=== PATIENT | male | born 1995 | race Caucasian/White ===

== ENCOUNTER 2024-04-07 03:04 | Inpatient (IN) | payer MEDICAID, OTHER ==
[~2024-04-07] VITALS: Ht 188 cm; Wt 87.3 kg
[2024-04-07 01:00] VITALS: BP 137/83; PULSE 96; RESP 18; TEMP 97.9; O2SAT 98
[~2024-04-07 03:04] MED LIST: BUPR-49 PO; GABA-1201 PO; NALT50TA6 PO; OLAN10TA74 PO; TRAZ-257 PO
[2024-04-07 03:28] LABS: COVID AG,FIA SOURCE NASAL SWAB
[2024-04-07 03:30] LABS: BASOPHILS % (AUTO) 0.7 % (0.0-2.0); EOSINOPHILS % (AUTO) 1.2 % (1.0-6.0); HEMATOCRIT 36.9 % (41-53); HEMOGLOBIN 12.3 g/dL (13.5-17.5); LYMPHOCYTES # (AUTO) 1.9 K/uL (1.0-4.8); LYMPHOCYTES % (AUTO) 18.2 % (22.0-44.0); MEAN CORPUSCULAR HEMOGLOBIN 28.7 pg (26.0-34.0); MEAN CORPUSCULAR HGB CONC 33.3 G/dL (31.0-37.0); MEAN CORPUSCULAR VOLUME 87 fL (80-100); MONOCYTES # (AUTO) 0.8 K/uL (0.1-1.0); MONOCYTES % (AUTO) 7.7 % (2.0-9.0); NEUTROPHILS # (AUTO) 7.6 K/uL (1.8-7.7); NEUTROPHILS % (AUTO) 72.2 % (40.0-70.0); PLATELET COUNT (AUTO) 333 K/uL (150-450); RED BLOOD CELL COUNT(AUTO) 4.27 MIL/uL (4.50-5.90); RED CELL DISTRIBUTION WIDTH 15.3 % (11.5-14.5); WHITE BLOOD COUNT (AUTO) 10.5 K/uL (4.5-11.0)
[2024-04-07 03:39] LABS: ANION GAP 5 mmol/L (8-16); CALCIUM, TOTAL 9.5 mg/dL (8.8-10.5); CARBON DIOXIDE 30 mmol/L (22-29); CHLORIDE 102 mmol/L (98-107); CREATININE 0.73 mg/dL (0.60-1.30); GLOMERULAR FILTR. RATE CALC > 60 mL/min (>60); GLUCOSE,RANDOM 97 mg/dL (70-110); POTASSIUM 3.7 mmol/L (3.5-5.1); SODIUM SERUM 137 mmol/L (136-145); UREA NITROGEN, BLOOD 12 mg/dL (7-18)
[2024-04-07 03:48] LABS: ALCOHOL, BLOOD (SERUM) < 3 mg/dL (0-10)
[2024-04-07 03:51] LABS: SARS-COV2 (COVID) ANTIGEN,FIA Negative (Negative)
[2024-04-07] MEDS ORDERED: HALOPERIDOL 5 MG TABLET PO PRN (04:15)
[2024-04-07] MEDS ORDERED: OLANZapine 5 MG RAPDIS TABLET PO PRN (04:30)
[2024-04-07 06:02] LABS: APPEARANCE,URINE CLEAR (CLEAR); BILIRUBIN,URINE NEGATIVE (NEGATIVE); COLOR,URINE LIGHT YELLOW (YELLOW); GLUCOSE, URINE (UA) NEGATIVE (NEGATIVE); KETONES,URINE NEGATIVE (NEGATIVE); LEUKOCYTE ESTERASE ,URINE NEGATIVE (NEGATIVE); NITRATE,URINE NEGATIVE (NEGATIVE); OCCULT BLOOD,URINE NEGATIVE (NEGATIVE); PROTEIN,URINE NEGATIVE (NEGATIVE); SPECIFIC GRAVITIY, URINE 1.009 (1.003-1.030); UROBILINOGEN,URINE <=1.0 mg/dL (<=1.0)
[2024-04-07 06:06] LABS: ALCOHOL, URINE DRUG SCREEN NEGATIVE (NEGATIVE); AMPHET/METH SCREEN,URINE POSITIVE (NEGATIVE); BARBITURATE SCREEN, URINE NEGATIVE (NEGATIVE); BENZODIAZEPINES SCREEN,URINE NEGATIVE (NEGATIVE); CANNABINOID SCREEN,URINE NEGATIVE (NEGATIVE); COCAINE SCREEN,URINE NEGATIVE (NEGATIVE); METHADONE SCREEN, URINE NEGATIVE (NEGATIVE); OPIATE SCREEN,URINE NEGATIVE (NEGATIVE); PHENCYCLIDINE SCREEN,URINE NEGATIVE (NEGATIVE)
[2024-04-07] MEDS: LORazepam 2 MG TABLET PO PRN (09:39)
[2024-04-07 14:10] VITALS: BP 138/98; PULSE 92; RESP 20; TEMP 96.8
[2024-04-07] MEDS ORDERED: PNEUMOCOCCAL VACCINE POLYVALENT 0.5 ML SYRINGE [PPSV23] IM. ONE (15:45)
[2024-04-07] MEDS ORDERED: MAG HYDROX/ALUMINUM HYD/SIMETH ES 30 ML SUSPENSION UDCUP PO PRN (20:30)
[2024-04-07] MEDS ORDERED: HydrOXYzine PAMOATE 50 MG CAPSULE PO PRN (20:30)
[2024-04-07] MEDS ORDERED: GuaiFENesin/D-METHORPHAN [SUGAR-FREE] 200-20MG/10 ML SYRUP UDCUP PO PRN (20:30)
[2024-04-07] MEDS ORDERED: LOPERAMIDE HCL 2 MG CAPSULE PO PRN (20:30)
[2024-04-07] MEDS ORDERED: CloNIDine HCL 0.1 MG TABLET PO PRN (20:30)
[2024-04-07] MEDS ORDERED: MAGNESIUM HYDROXIDE SUSPENSION 30 ML UDCUP PO PRN (20:30)
[2024-04-07] MEDS: MELATONIN 5 MG TABLET PO SCH (21:13)
[2024-04-07] MEDS: OLANZapine 5 MG RAPDIS TABLET PO SCH (21:13)
[2024-04-07] MEDS: GABAPENTIN 300 MG CAPSULE PO SCH (21:13)
[2024-04-07] MEDS: CloNIDine HCL 0.1 MG TABLET PO SCH (21:14)
[2024-04-07] MEDS: TraZODone HCL 100 MG TABLET PO SCH (21:14)
[2024-04-07 21:18] VITALS: BP 137/83; PULSE 96; RESP 18; TEMP 98; O2SAT 98
[2024-04-07 21:26] VITALS: BP 137/83; PULSE 96; RESP 18; TEMP 97.9
[2024-04-08 01:00] VITALS: BP 129/81; PULSE 94; RESP 18; TEMP 98.1; O2SAT 98
[2024-04-08 05:00] VITALS: BP 130/80; PULSE 92; RESP 18; TEMP 97.5; O2SAT 97
[2024-04-08 06:04] VITALS: BP 136/88; PULSE 80; RESP 18; TEMP 97.4
[2024-04-08] MEDS: THIAMINE 100 MG TABLET PO SCH (08:28)
[2024-04-08] MEDS: MULTIVITAMINS WITH MINERALS, THERAPEUTIC TABLET PO SCH (08:28)
[2024-04-08] MEDS: FOLIC ACID 1 MG TABLET PO SCH (08:28)
[2024-04-08 08:38] VITALS: BP 108/61; PULSE 80; RESP 18; TEMP 98.1
[2024-04-08] MEDS: OLANZapine 5 MG RAPDIS TABLET PO PRN (11:59)
[2024-04-08] MEDS: NICOTINE POLACRILEX 4 MG LOZENGE PO PRN (17:38)
[2024-04-08 20:15] VITALS: BP 113/66; PULSE 82; RESP 18; TEMP 97.6
[2024-04-08 21:36] VITALS: BP 113/66; PULSE 82; RESP 18; TEMP 98; O2SAT 98
[2024-04-09 05:43] VITALS: BP 114/69; PULSE 81; RESP 17; TEMP 97.4
[2024-04-09 09:26] VITALS: BP 122/77; PULSE 107; RESP 18; TEMP 98.2
[2024-04-09] MEDS: MUPIROCIN CALCIUM 2% 22 GM OINTMENT NASAL SCH (12:21)
[2024-04-09 12:40] VITALS: BP 119/69
[2024-04-09] MEDS: PROMETHAZINE HCL 25 MG TABLET PO PRN (20:12)
[2024-04-09] MEDS: HydrOXYzine PAMOATE 50 MG CAPSULE PO PRN (20:12)
[2024-04-09] MEDS: ZOLPIDEM TARTRATE 10 MG TABLET PO PRN (20:43)
[2024-04-09 21:45] VITALS: BP 135/92; PULSE 98; RESP 18; TEMP 97.2; O2SAT 97
[2024-04-10 05:57] VITALS: BP 129/72; PULSE 83
[2024-04-10 09:41] VITALS: BP 132/83; PULSE 98; RESP 18; TEMP 97.2
[2024-04-10 12:26] VITALS: BP 132/82; PULSE 107; RESP 20; TEMP 98
[2024-04-10] MEDS: IBUPROFEN 600 MG TABLET PO PRN (12:32)
[2024-04-10] MEDS: MAG HYDROX/ALUMINUM HYD/SIMETH ES 30 ML SUSPENSION UDCUP PO PRN (12:33)
[2024-04-10] MEDS ORDERED: LORazepam 2 MG/ML VIAL ONE (12:54)
[2024-04-10] MEDS ORDERED: DiphenhydrAMINE HCL 50 MG/ML VIAL ONE (12:55)
[2024-04-10] MEDS ORDERED: HALOPERIDOL LACTATE 5 MG/ML VIAL ONE (12:55)
[2024-04-10] MEDS: LORazepam 2 MG/ML VIAL IM ONE (13:04)
[2024-04-10] MEDS: DiphenhydrAMINE HCL 50 MG/ML VIAL IM ONE (13:04)
[2024-04-10] MEDS: HALOPERIDOL LACTATE 5 MG/ML VIAL IM ONE (13:05)
[2024-04-10 22:30] VITALS: BP 114/64; PULSE 91; RESP 18; TEMP 97.4
[2024-04-11] MEDS ORDERED: HALOPERIDOL LACTATE 5 MG/ML VIAL ONE (08:27)
[2024-04-11] MEDS ORDERED: LORazepam 2 MG/ML VIAL ONE (08:27)
[2024-04-11] MEDS ORDERED: DiphenhydrAMINE HCL 50 MG/ML VIAL ONE (08:28)
[2024-04-11] MEDS: LORazepam 2 MG/ML VIAL IM ONE (08:35)
[2024-04-11] MEDS: DiphenhydrAMINE HCL 50 MG/ML VIAL IM ONE (08:35)
[2024-04-11] MEDS: HALOPERIDOL LACTATE 5 MG/ML VIAL IM ONE (08:37)
[2024-04-11] MEDS: BuPROPion HCL XL 150 MG ER TABLET PO SCH (09:00)
[2024-04-11] MEDS: GABAPENTIN 400 MG CAPSULE PO SCH (09:00)
[2024-04-11] MEDS: NALTREXONE HCL 50 MG TABLET PO SCH (09:00)
[2024-04-11] MEDS: MUPIROCIN CALCIUM 2% 22 GM OINTMENT NASAL SCH (09:00)
[2024-04-11 09:53] VITALS: BP 141/85; PULSE 98; RESP 17; TEMP 97.5
[2024-04-11 20:11] VITALS: BP 151/85; PULSE 99; RESP 16; TEMP 98.4
[2024-04-11] MEDS: TraZODone HCL 100 MG TABLET PO SCH (20:35)
[2024-04-12 08:30] VITALS: BP 136/83; PULSE 105; RESP 18; TEMP 98
[2024-04-12] MEDS: GABAPENTIN 300 MG CAPSULE PO SCH (13:31)
[2024-04-12] MEDS ORDERED: HALOPERIDOL LACTATE 5 MG/ML VIAL ONE ×2 (16:03→16:04)
[2024-04-12] MEDS ORDERED: LORazepam 2 MG/ML VIAL ONE (16:03)
[2024-04-12] MEDS ORDERED: DiphenhydrAMINE HCL 50 MG/ML VIAL ONE (16:04)
[2024-04-12] MEDS: DiphenhydrAMINE HCL 50 MG/ML VIAL IM ONE (16:18)
[2024-04-12] MEDS: HALOPERIDOL LACTATE 5 MG/ML VIAL IM ONE (16:18)
[2024-04-12] MEDS: LORazepam 2 MG/ML VIAL IM ONE (16:19)
[2024-04-12 20:53] VITALS: RESP 18
[2024-04-13] MEDS: BuPROPion HCL XL 150 MG ER TABLET PO SCH (07:54)
[2024-04-13] MEDS: OLANZapine 5 MG RAPDIS TABLET PO SCH ×3 (07:55→21:17)
[2024-04-13 12:43] VITALS: BP 134/87; PULSE 106; RESP 18; TEMP 97.2
[2024-04-13] MEDS: GABAPENTIN 300 MG CAPSULE PO PRN (16:05)
[2024-04-13] MEDS: GABAPENTIN 300 MG CAPSULE PO SCH (17:00)
[2024-04-13 21:45] VITALS: BP 126/60; PULSE 102; RESP 18; TEMP 97.7
[2024-04-14] MEDS: GABAPENTIN 400 MG CAPSULE PO SCH (08:04)
[2024-04-14 10:24] VITALS: BP 139/89; PULSE 97; RESP 19; TEMP 98.9
[2024-04-14] MEDS ORDERED: CloNIDine HCL 0.1 MG TABLET PO PRN (12:00)
[2024-04-14] MEDS: CloNIDine HCL 0.1 MG TABLET PO SCH (12:00)
[2024-04-14] MEDS ORDERED: MAG HYDROX/ALUMINUM HYD/SIMETH ES 30 ML SUSPENSION UDCUP PO PRN (12:00)
[2024-04-14 12:01] VITALS: BP 135/69; PULSE 98; RESP 18; TEMP 97.5
[2024-04-14] MEDS ORDERED: HALOPERIDOL LACTATE 5 MG/ML VIAL ONE (12:02)
[2024-04-14] MEDS ORDERED: LORazepam 2 MG/ML VIAL ONE (12:02)
[2024-04-14] MEDS ORDERED: DiphenhydrAMINE HCL 50 MG/ML VIAL ONE (12:02)
[2024-04-14] MEDS: LORazepam 2 MG/ML VIAL IM ONE (12:14)
[2024-04-14] MEDS: HALOPERIDOL LACTATE 5 MG/ML VIAL IM ONE (12:14)
[2024-04-14] MEDS: DiphenhydrAMINE HCL 50 MG/ML VIAL IM ONE (12:15)
[2024-04-14 20:50] VITALS: RESP 18
[2024-04-15 05:56] VITALS: BP 131/79; PULSE 93; RESP 18; TEMP 97.8
[2024-04-15 09:20] VITALS: BP 131/76; PULSE 99; RESP 18; TEMP 97.7
[2024-04-15 12:13] VITALS: BP 128/75; PULSE 78; RESP 18; TEMP 98.2
[2024-04-15 20:06] VITALS: RESP 18
[2024-04-15 21:12] VITALS: BP 108/64; PULSE 91; RESP 19; TEMP 97.1
[2024-04-16 06:01] VITALS: BP 127/71; PULSE 97; RESP 19; TEMP 97.9
[2024-04-16] MEDS: HydrOXYzine PAMOATE 50 MG CAPSULE PO PRN (07:23)
[2024-04-16] MEDS: IBUPROFEN 600 MG TABLET PO PRN (07:29)
[2024-04-16 08:29] VITALS: RESP 17; TEMP 98
[2024-04-16] MEDS: DiphenhydrAMINE HCL 25 MG CAPSULE PO ONE (08:32)
[2024-04-16 09:18] VITALS: TEMP 98
[2024-04-16 12:01] VITALS: BP 131/76; PULSE 94; RESP 19; TEMP 97.7; O2SAT 97
[2024-04-16 20:06] VITALS: RESP 18
[2024-04-16] MEDS ORDERED: TraZODone HCL 100 MG TABLET PO SCH (21:00)
[2024-04-17 08:11] VITALS: BP 138/85; PULSE 104; RESP 18; TEMP 97.2
[2024-04-17 12:09] VITALS: BP 130/79; PULSE 102; RESP 20; TEMP 98; O2SAT 96
[2024-04-17 20:34] VITALS: RESP 18
[2024-04-18 07:55] VITALS: BP 116/68; PULSE 90; RESP 18; TEMP 98
[2024-04-18 08:32] VITALS: BP 116/68; PULSE 90; RESP 18; TEMP 98
[2024-04-18] MEDS: HALOPERIDOL LACTATE 5 MG/ML VIAL IM ONE (12:26)
[2024-04-18] MEDS: LORazepam 2 MG/ML VIAL IM ONE (12:27)
[2024-04-18] MEDS: DiphenhydrAMINE HCL 50 MG/ML VIAL IM ONE (12:27)
[2024-04-18] MEDS: HALOPERIDOL 5 MG TABLET PO PRN (17:55)
[2024-04-18 20:43] VITALS: RESP 19; TEMP 97.6
[2024-04-18] MEDS: HALOPERIDOL 10 MG TABLET PO SCH (21:32)
[2024-04-19] MEDS: BuPROPion HCL XL 150 MG ER TABLET PO SCH (08:11)
[2024-04-19 09:44] VITALS: BP 117/70; PULSE 97; RESP 18; TEMP 98.4
[2024-04-19 12:07] VITALS: BP 116/71; PULSE 95; RESP 18
[2024-04-19 16:20] VITALS: BP 118/66; PULSE 89; RESP 18
[2024-04-19 20:15] VITALS: BP 120/63; PULSE 92; RESP 19; TEMP 97.6
[2024-04-19 20:18] VITALS: BP 123/74; PULSE 91; RESP 18; TEMP 97.1
[2024-04-19] MEDS: HALOPERIDOL 10 MG TABLET PO SCH (20:49)
[2024-04-19] MEDS: TraZODone HCL 100 MG TABLET PO SCH (20:50)
[2024-04-20] VITALS (7 sets, daily range): BP systolic 115–129; BP diastolic 67–76; PULSE 85–91; RESP 18–19; TEMP 97.9–98.4
[2024-04-20] MEDS: ACETAMINOPHEN 325 MG TABLET PO PRN (04:15)
[2024-04-20] MEDS: GuanFACINE HCL 1 MG TABLET PO SCH (17:52)
[2024-04-20] MEDS: MIRTAZAPINE 15 MG TABLET PO SCH (20:47)
[2024-04-21 05:48] VITALS: BP 108/69; PULSE 89; RESP 17
[2024-04-21 09:30] VITALS: BP 116/71; PULSE 84; RESP 18; TEMP 98
[2024-04-21 12:00] VITALS: BP 123/78; PULSE 90
[2024-04-21 20:53] VITALS: BP 123/67; PULSE 83; RESP 18
[2024-04-22] MEDS ORDERED: HALOPERIDOL LACTATE 5 MG/ML VIAL ONE (08:20)
[2024-04-22] MEDS ORDERED: LORazepam 2 MG/ML VIAL ONE (08:20)
[2024-04-22] MEDS ORDERED: DiphenhydrAMINE HCL 50 MG/ML VIAL ONE (08:20)
[2024-04-22] MEDS: DiphenhydrAMINE HCL 50 MG/ML VIAL IM ONE (09:28)
[2024-04-22] MEDS: LORazepam 2 MG/ML VIAL IM ONE (09:28)
[2024-04-22] MEDS: HALOPERIDOL LACTATE 5 MG/ML VIAL IM ONE (09:31)
[2024-04-22 11:28] VITALS: BP 102/56; PULSE 86; RESP 18; TEMP 98.4
[2024-04-22] MEDS: GuanFACINE HCL 1 MG TABLET PO SCH (12:49)
[2024-04-22] MEDS: RisperiDONE 1 MG TABLET PO SCH (12:50)
[2024-04-22] MEDS: GABAPENTIN 400 MG CAPSULE PO SCH (12:50)
[2024-04-22 20:00] VITALS: BP 109/66; PULSE 89; RESP 18; TEMP 97.1
[2024-04-22] MEDS: ESZOPICLONE 3 MG TABLET PO PRN (21:00)
[2024-04-23 06:46] VITALS: BP 97/58; PULSE 76; RESP 17
[2024-04-23 17:07] VITALS: BP 114/71; PULSE 97; RESP 18; TEMP 97.9
[2024-04-23 20:36] VITALS: BP 121/76; PULSE 89; RESP 19; TEMP 98.1
[2024-04-24 09:30] VITALS: BP 118/72; PULSE 83; RESP 17; TEMP 97.3
[2024-04-24 12:00] VITALS: BP 136/75; PULSE 78
[2024-04-24] MEDS: MELATONIN 5 MG TABLET PO SCH (20:16)
[2024-04-24 20:48] VITALS: BP 121/72; PULSE 78; RESP 18; TEMP 97.7
[2024-04-25 06:12] VITALS: BP 110/79; PULSE 80; RESP 18; TEMP 97.5
[2024-04-25 12:03] VITALS: BP 108/67; PULSE 90; RESP 17; TEMP 98
[2024-04-25] MEDS: CloNIDine HCL 0.1 MG TABLET PO SCH (16:40)
[2024-04-25 20:18] VITALS: BP 118/78; PULSE 91; RESP 18; TEMP 98.2
[2024-04-26 10:03] VITALS: BP 111/63; PULSE 86; RESP 18; TEMP 98.2
[2024-04-26] MEDS: CHLORHEXIDINE GLUCONATE 2% TOWELETTE [2'S/6'S] TP SCH (11:26)
[2024-04-26] MEDS: ETHYL ALCOHOL 62% ANTISEPTIC NASAL SANITIZER 0.6 ML AMPUL NASAL SCH (11:26)
[2024-04-26 12:29] VITALS: BP 129/69; PULSE 99; RESP 18
[2024-04-26] MEDS: GABAPENTIN 300 MG CAPSULE PO SCH (21:01)
[2024-04-26 22:30] VITALS: BP 120/70; PULSE 87; RESP 18; TEMP 98.8
[2024-04-27] MEDS: RisperiDONE 3 MG TABLET PO SCH (08:15)
[2024-04-27 09:25] VITALS: BP 110/63; PULSE 90; RESP 17; TEMP 97.8
[2024-04-27] MEDS ORDERED: RISP3TAB77 PO (15:52)
[2024-04-27] MEDS ORDERED: GABA-1181 PO (15:52)
[2024-04-27] MEDS ORDERED: BUPR-514 PO (15:52)
[2024-04-27] MEDS ORDERED: NALT50TA33 PO (15:52)
[2024-04-27] MEDS ORDERED: MIRT-89 PO (15:52)
[2024-04-27] MEDS ORDERED: MELA5TAB40 PO (15:52)
[2024-04-27] MEDS ORDERED: GUAN1TAB2 PO (15:52)
[2024-04-27 17:00] VITALS: BP 126/96; PULSE 90; RESP 18
[2024-04-27 21:12] VITALS: BP 128/75; PULSE 82; RESP 18; TEMP 98.7
[2024-04-28 05:01] VITALS: BP 110/78; PULSE 92; RESP 18; TEMP 98.4
[2024-04-28] MEDS: RisperiDONE 1 MG TABLET PO PRN (09:50)
[2024-04-28 09:56] VITALS: BP 118/68; PULSE 84; RESP 18; TEMP 97.6
[2024-04-28 20:11] VITALS: BP 117/78; PULSE 88; RESP 18; TEMP 97.4
[2024-04-29 06:00] VITALS: BP 111/71; PULSE 90; RESP 17
[2024-04-29 14:48] VITALS: BP 114/68; PULSE 83; RESP 17; TEMP 98.9
[2024-04-29] MEDS: MUPIROCIN CALCIUM 2% 15 GM CREAM TP SCH (21:18)
[2024-04-29 22:19] VITALS: BP 108/71; PULSE 80; RESP 17; TEMP 98
[2024-04-30 06:18] VITALS: BP 115/71; PULSE 98; RESP 18; TEMP 97.3
[2024-04-30 09:50] VITALS: BP 110/70; PULSE 94; RESP 18; TEMP 97.8
[2024-04-30 12:21] VITALS: BP 104/51; PULSE 83; RESP 17
[2024-04-30 16:36] VITALS: BP 124/69; PULSE 93; RESP 18
[2024-04-30 21:54] VITALS: BP 123/74; PULSE 81; RESP 18; TEMP 98
[2024-05-01 09:54] VITALS: BP 106/71; PULSE 86; RESP 18; TEMP 97.7
[2024-05-01 12:06] VITALS: BP 131/80; PULSE 103
[2024-05-01 16:28] VITALS: BP 127/76; PULSE 94
[2024-05-01 22:00] VITALS: BP 132/82; PULSE 90; RESP 18; TEMP 98.2
[2024-05-02 03:05] VITALS: RESP 18
[2024-05-02 04:05] VITALS: RESP 18
[2024-05-02 04:37] VITALS: RESP 18
== END 2024-05-02 08:10 | disposition home or self-care (01) | DRG 750 ==
LOC: EMS 03:04 → 3EI 12:15 → 3EC 04-12 17:23 → 3EI 04-25 16:15
PROVIDERS: ADMIT Psychiatry & Neurology Psychiatry; ATTEND Psychiatry & Neurology Psychiatry
PROC: GZ56ZZZ Individual Psychotherapy, Supportive (ICD-10-PCS; principal; 2024-04-07)
DX: F25.0 Schizoaffective disorder, bipolar type (principal); R45.850 Homicidal ideations; F25.1 Schizoaffective disorder, depressive type; D64.9 Anemia, unspecified; F15.10 Other stimulant abuse, uncomplicated; F84.0 Autistic disorder; F90.9 Attention-deficit hyperactivity disorder, unspecified type; F17.210 Nicotine dependence, cigarettes, uncomplicated; Z20.822 Contact with and (suspected) exposure to COVID-19; F41.9 Anxiety disorder, unspecified; T40.412A Poisoning by fentanyl or fentanyl analogs, intentional self-harm, initial encounter; N48.30 Priapism, unspecified; Z59.00 Homelessness unspecified; Z88.8 Allergy status to other drugs, medicaments and biological substances; Z72.89 Other problems related to lifestyle; Y92.89 Other specified places as the place of occurrence of the external cause
CPT/HCPCS: 80048; 80307; 81003; 85025; 86592; 87081; 99285; G0480; J1200; J1630; J2060; Q9967

== ENCOUNTER 2024-04-20 05:34 | Emergency (ER) | payer MEDICAID, OTHER ==
[~2024-04-20] VITALS: Ht 188 cm; Wt 82.0 kg
[2024-04-20 05:41] VITALS: BP 126/79; PULSE 82; RESP 18; TEMP 98
[2024-04-20] MEDS: HYDROmorphone HCL 2 MG/ML SYRINGE IVP ONE ×2 (05:47→06:32)
[2024-04-20] MEDS: SODIUM CHLORIDE 0.9% 1,000 ML IV ONE (05:48)
[2024-04-20] MEDS: BENZTROPINE MESYLATE 1 MG/ML 2 ML VIAL IVP ONE (06:02)
[2024-04-20] MEDS ORDERED: LORazepam 2 MG/ML VIAL IVP ONE (06:30)
[2024-04-20] MEDS ORDERED: LIDOCAINE 1% 10 ML VIAL SQ ONE (07:00)
== END 2024-04-20 06:58 ==
LOC: EMS 05:36
DX: N48.30 Priapism, unspecified (principal); F17.210 Nicotine dependence, cigarettes, uncomplicated; F15.10 Other stimulant abuse, uncomplicated; Z88.1 Allergy status to other antibiotic agents; Z88.8 Allergy status to other drugs, medicaments and biological substances
CPT/HCPCS: 99284; 96374; 96361; 96375; 96376; J0515; J1170; J7030; J2060

== ENCOUNTER 2024-05-06 00:48 | Inpatient (IN) | payer MEDICAID, OTHER ==
[~2024-05-06] VITALS: Ht 170.2 cm; Wt 85.9 kg
[~2024-05-06 00:48] MED LIST changes: -BUPR-49 PO; +BUPR-514 PO; +GABA-1181 PO; -GABA-1201 PO; +GUAN1TAB2 PO; +MELA5TAB40 PO; +MIRT-89 PO; +NALT50TA33 PO; -NALT50TA6 PO; -OLAN10TA74 PO; +RISP3TAB77 PO; -TRAZ-257 PO
[2024-05-06 01:35] LABS: BASOPHILS % (AUTO) 0.5 % (0.0-2.0); EOSINOPHILS % (AUTO) 2.7 % (1.0-6.0); HEMOGLOBIN 12.5 g/dL (13.5-17.5); LYMPHOCYTES # (AUTO) 1.7 K/uL (1.0-4.8); LYMPHOCYTES % (AUTO) 20.3 % (22.0-44.0); MEAN CORPUSCULAR HGB CONC 33.7 G/dL (31.0-37.0); MEAN CORPUSCULAR VOLUME 86 fL (80-100); MONOCYTES # (AUTO) 1.3 K/uL (0.1-1.0); MONOCYTES % (AUTO) 15.3 % (2.0-9.0); NEUTROPHILS % (AUTO) 61.2 % (40.0-70.0); PLATELET COUNT (AUTO) 210 K/uL (150-450); RED BLOOD CELL COUNT(AUTO) 4.31 MIL/uL (4.50-5.90); RED CELL DISTRIBUTION WIDTH 15.7 % (11.5-14.5); WHITE BLOOD COUNT (AUTO) 8.2 K/uL (4.5-11.0)
[2024-05-06 01:41] LABS: ANION GAP 6 mmol/L (8-16); CALCIUM, TOTAL 8.6 mg/dL (8.8-10.5); CARBON DIOXIDE 29 mmol/L (22-29); CHLORIDE 101 mmol/L (98-107); CREATININE 0.76 mg/dL (0.60-1.30); GLOMERULAR FILTR. RATE CALC > 60 mL/min (>60); GLUCOSE,RANDOM 95 mg/dL (70-110); POTASSIUM 3.5 mmol/L (3.5-5.1); SODIUM SERUM 136 mmol/L (136-145); UREA NITROGEN, BLOOD 19 mg/dL (7-18)
[2024-05-06 01:52] LABS: ALCOHOL, BLOOD (SERUM) < 3 mg/dL (0-10)
[2024-05-06] MEDS: LORazepam 2 MG TABLET PO ONE (02:59)
[2024-05-06 03:59] LABS: COVID AG,FIA SOURCE NASAL SWAB
[2024-05-06 04:01] LABS: SARS-COV2 (COVID) ANTIGEN,FIA Negative (Negative)
[2024-05-06] MEDS ORDERED: ZOLPIDEM TARTRATE 10 MG TABLET PO PRN (05:00)
[2024-05-06 06:03] LABS: ALCOHOL, URINE DRUG SCREEN NEGATIVE (NEGATIVE); AMPHET/METH SCREEN,URINE POSITIVE (NEGATIVE); BARBITURATE SCREEN, URINE NEGATIVE (NEGATIVE); BENZODIAZEPINES SCREEN,URINE NEGATIVE (NEGATIVE); CANNABINOID SCREEN,URINE NEGATIVE (NEGATIVE); COCAINE SCREEN,URINE NEGATIVE (NEGATIVE); METHADONE SCREEN, URINE NEGATIVE (NEGATIVE); OPIATE SCREEN,URINE NEGATIVE (NEGATIVE); PHENCYCLIDINE SCREEN,URINE NEGATIVE (NEGATIVE)
[2024-05-06 06:17] LABS: APPEARANCE,URINE CLEAR (CLEAR); BILIRUBIN,URINE NEGATIVE (NEGATIVE); COLOR,URINE YELLOW (YELLOW); GLUCOSE, URINE (UA) NEGATIVE (NEGATIVE); KETONES,URINE NEGATIVE (NEGATIVE); LEUKOCYTE ESTERASE ,URINE NEGATIVE (NEGATIVE); NITRATE,URINE NEGATIVE (NEGATIVE); OCCULT BLOOD,URINE NEGATIVE (NEGATIVE); PH,URINE 5.5 (5.0-8.0); PROTEIN,URINE 30-70 mg/dL (NEGATIVE); SPECIFIC GRAVITIY, URINE 1.032 (1.003-1.030); UROBILINOGEN,URINE <=1.0 mg/dL (<=1.0)
[2024-05-06 06:18] LABS: PH,URINE DRUG SCREEN 5.5 (5.0-8.0)
[2024-05-06] MEDS: LORazepam 2 MG TABLET PO PRN (10:10)
[2024-05-06] MEDS ORDERED: RisperiDONE 1 MG TABLET PO PRN (15:45)
[2024-05-06] MEDS ORDERED: MAG HYDROX/ALUMINUM HYD/SIMETH ES 30 ML SUSPENSION UDCUP PO PRN (15:45)
[2024-05-06] MEDS ORDERED: GuaiFENesin/D-METHORPHAN [SUGAR-FREE] 200-20MG/10 ML SYRUP UDCUP PO PRN (15:45)
[2024-05-06] MEDS ORDERED: LOPERAMIDE HCL 2 MG CAPSULE PO PRN (15:45)
[2024-05-06] MEDS ORDERED: MAGNESIUM HYDROXIDE SUSPENSION 30 ML UDCUP PO PRN (15:45)
[2024-05-06] MEDS ORDERED: PROMETHAZINE HCL 25 MG TABLET PO PRN (15:45)
[2024-05-06] MEDS ORDERED: CloNIDine HCL 0.1 MG TABLET PO PRN (15:45)
[2024-05-06 18:05] VITALS: BP 123/82; PULSE 78; RESP 16; RESP 18; TEMP 97.9; O2SAT 99
[2024-05-06] MEDS: THIAMINE 100 MG TABLET PO SCH (18:13)
[2024-05-06] MEDS: GABAPENTIN 400 MG CAPSULE PO SCH (18:13)
[2024-05-06] MEDS: RisperiDONE 1 MG TABLET PO SCH (18:14)
[2024-05-06] MEDS: GuanFACINE HCL 1 MG TABLET PO SCH (18:14)
[2024-05-06 19:00] VITALS: BP 128/86; PULSE 81; RESP 16; TEMP 98.1
[2024-05-06 19:10] VITALS: BP 120/60; PULSE 83; RESP 17; TEMP 97.9; O2SAT 99
[2024-05-06] MEDS: CloNIDine HCL 0.1 MG TABLET PO SCH (19:48)
[2024-05-06 20:00] VITALS: BP 112/56; PULSE 86; RESP 17; TEMP 97.6; O2SAT 100
[2024-05-06] MEDS: MIRTAZAPINE 15 MG TABLET PO SCH (21:33)
[2024-05-06] MEDS: MELATONIN 3 MG TABLET PO SCH (21:33)
[2024-05-07] VITALS (10 sets, daily range): BP systolic 103–134; BP diastolic 51–78; PULSE 64–100; RESP 16–19; TEMP 97–98.8; O2SAT 97–100
[2024-05-07] MEDS: FOLIC ACID 1 MG TABLET PO SCH (10:21)
[2024-05-07] MEDS: MULTIVITAMINS WITH MINERALS, THERAPEUTIC TABLET PO SCH (10:21)
[2024-05-07] MEDS: LITHIUM CARBONATE 300 MG CAPSULE PO SCH (16:46)
[2024-05-07] MEDS ORDERED: DIVALPROEX SODIUM 500 MG DR TABLET PO SCH (17:00)
[2024-05-08 06:00] VITALS: BP 116/80; PULSE 88
[2024-05-08 08:37] VITALS: BP 119/97; PULSE 84; RESP 17; TEMP 97.7; O2SAT 98
[2024-05-08 14:10] VITALS: BP 121/86; PULSE 82; RESP 18; TEMP 97.9; O2SAT 97
[2024-05-08 20:15] VITALS: BP 111/65; PULSE 100; RESP 18; TEMP 96.9; O2SAT 100
[2024-05-08] MEDS: ETHYL ALCOHOL 62% ANTISEPTIC NASAL SANITIZER 0.6 ML AMPUL NASAL SCH (20:33)
[2024-05-09 08:31] VITALS: BP 113/61; PULSE 70; RESP 17; TEMP 96.1; O2SAT 100
[2024-05-09] MEDS: NICOTINE POLACRILEX 2 MG LOZENGE PO PRN (09:45)
[2024-05-09] MEDS: IBUPROFEN 600 MG TABLET PO PRN (10:29)
[2024-05-09] MEDS ORDERED: GABAPENTIN 300 MG CAPSULE PO PRN (11:30)
[2024-05-09] MEDS: GuanFACINE HCL 1 MG TABLET PO SCH (12:02)
[2024-05-09] MEDS: GABAPENTIN 300 MG CAPSULE PO SCH (12:02)
[2024-05-09] MEDS: RisperiDONE 3 MG TABLET PO SCH (16:38)
[2024-05-09] MEDS: HydrOXYzine PAMOATE 50 MG CAPSULE PO PRN (19:15)
[2024-05-09 20:30] VITALS: BP 119/76; PULSE 70; RESP 18; TEMP 97.4; O2SAT 100
[2024-05-10 08:19] VITALS: BP 113/63; PULSE 85; RESP 19; TEMP 97.7; O2SAT 100
[2024-05-10] MEDS: BuPROPion HCL XL 150 MG ER TABLET PO SCH (08:56)
[2024-05-10] MEDS ORDERED: PALIPERIDONE PALMITATE 156 MG/ML SYRINGE IM ONE (09:00)
[2024-05-10] MEDS: NALTREXONE HCL 50 MG TABLET PO SCH (09:01)
[2024-05-10 12:15] VITALS: BP 97/46; PULSE 67; RESP 18; O2SAT 98
[2024-05-10] MEDS: RisperiDONE 1 MG TABLET PO SCH (17:14)
[2024-05-10] MEDS: PALIPERIDONE PALMITATE 234 MG/1.5 ML SYRINGE IM ONE (17:21)
[2024-05-10 22:24] VITALS: RESP 18
[2024-05-11 08:36] VITALS: BP 119/60; PULSE 85; RESP 17; TEMP 96.2; O2SAT 100
[2024-05-11] MEDS: BuPROPion HCL XL 150 MG ER TABLET PO SCH (09:24)
[2024-05-11 16:32] VITALS: BP 117/65
[2024-05-11 20:36] VITALS: BP 116/68; PULSE 82; RESP 18; TEMP 98.3; O2SAT 99
[2024-05-12 08:59] VITALS: BP 123/73; PULSE 90; RESP 18; TEMP 96.2; O2SAT 98
[2024-05-12] MEDS: RisperiDONE 2 MG TABLET PO SCH (09:19)
[2024-05-12] MEDS: BuPROPion HCL XL 150 MG ER TABLET PO SCH (09:19)
[2024-05-12 16:34] VITALS: BP 114/68
[2024-05-12] MEDS ORDERED: DiphenhydrAMINE HCL 50 MG/ML VIAL IM ONE (16:45)
[2024-05-12] MEDS ORDERED: HALOPERIDOL LACTATE 5 MG/ML VIAL IM ONE (16:45)
[2024-05-12] MEDS ORDERED: LORazepam 2 MG/ML VIAL IM ONE (16:45)
[2024-05-12] MEDS: RisperiDONE 3 MG TABLET PO SCH (16:46)
[2024-05-12 20:25] VITALS: BP 114/68; PULSE 87; RESP 18; TEMP 98.7; O2SAT 99
[2024-05-13 08:51] VITALS: BP 126/66; PULSE 82; RESP 16; TEMP 97.7; O2SAT 100
[2024-05-13] MEDS: GuanFACINE HCL 1 MG TABLET PO SCH (16:16)
[2024-05-13] MEDS: GABAPENTIN 400 MG CAPSULE PO SCH (16:16)
[2024-05-13 20:13] VITALS: BP 125/68; PULSE 88; RESP 18; TEMP 97.9
[2024-05-14 08:57] VITALS: BP 119/76; PULSE 89; RESP 17; TEMP 98.2; O2SAT 100
[2024-05-14 13:42] VITALS: BP 116/66
[2024-05-14 16:59] VITALS: BP 121/67
[2024-05-14 20:00] VITALS: BP 121/17; PULSE 79; RESP 18; TEMP 97.6; O2SAT 100
[2024-05-14] MEDS: CHLORHEXIDINE GLUCONATE 2% TOWELETTE [2'S/6'S] TP SCH (21:39)
[2024-05-15 06:26] VITALS: BP 117/61; PULSE 80; RESP 18; TEMP 97.7; O2SAT 100
[2024-05-15] MEDS: ACETAMINOPHEN 325 MG TABLET PO PRN (06:28)
[2024-05-15 09:05] VITALS: BP 116/80; PULSE 72; RESP 19; TEMP 97.2; O2SAT 97
[2024-05-15 13:03] VITALS: BP 122/73
[2024-05-15 20:31] VITALS: BP 128/67; PULSE 82; RESP 18; TEMP 98; O2SAT 98
[2024-05-16 08:40] VITALS: BP 107/60; PULSE 87; RESP 17; TEMP 98.7; O2SAT 99
[2024-05-16] MEDS: HALOPERIDOL 5 MG TABLET PO PRN (09:57)
[2024-05-16 20:29] VITALS: BP 130/70; PULSE 90; RESP 16; TEMP 98.1; O2SAT 100
[2024-05-17] MEDS: ATOMOXETINE HCL 10 MG CAPSULE PO SCH (07:57)
[2024-05-17 08:39] VITALS: BP 114/60; PULSE 80; RESP 17; TEMP 97.4; O2SAT 100
[2024-05-17 20:40] VITALS: BP 115/71; PULSE 75; RESP 20; TEMP 97.4; O2SAT 100
[2024-05-18 08:30] VITALS: BP 110/60; PULSE 101; RESP 18; TEMP 97.5; O2SAT 98
[2024-05-18 12:59] VITALS: BP 106/61; RESP 18; O2SAT 98
[2024-05-18 19:48] VITALS: RESP 17
[2024-05-18 20:14] VITALS: BP 115/79; PULSE 92; RESP 19; TEMP 97.8; O2SAT 100
[2024-05-18 20:18] VITALS: RESP 16
[2024-05-19 04:31] VITALS: BP 116/76; PULSE 116; PULSE 88; PULSE 93; RESP 16; TEMP 97.6; O2SAT 96
[2024-05-19 05:31] VITALS: RESP 16; O2SAT 98
[2024-05-19] MEDS ORDERED: BUPR-514 PO (08:05)
[2024-05-19] MEDS ORDERED: GABA-1201 PO (08:06)
[2024-05-19] MEDS ORDERED: MELA3TAB89 PO (08:07)
[2024-05-19] MEDS ORDERED: GUAN1TAB20 PO (08:10)
[2024-05-19] MEDS ORDERED: MIRT-89 PO (08:11)
[2024-05-19] MEDS ORDERED: NALT50TA33 PO (08:11)
[2024-05-19] MEDS ORDERED: RISP3TAB77 PO (08:12)
[2024-05-19] MEDS ORDERED: ATOM18CA7 PO (08:14)
[2024-05-19] MEDS: ATOMOXETINE HCL 18 MG CAPSULE PO SCH (08:26)
[2024-05-19 08:52] VITALS: BP 118/78; PULSE 87; RESP 17; TEMP 97.9; O2SAT 98
[2024-05-19 09:03] VITALS: BP 114/70; PULSE 88; RESP 18; TEMP 97.4; O2SAT 99
== END 2024-05-19 08:50 | disposition home or self-care (01) | DRG 750 ==
LOC: EMS 00:48 → B2S 15:47
PROVIDERS: ADMIT Psychiatry & Neurology Psychiatry; ATTEND Psychiatry & Neurology Psychiatry
PROC: GZHZZZZ Group Psychotherapy (ICD-10-PCS; principal; 2024-05-06)
PROC: GZ58ZZZ Individual Psychotherapy, Cognitive-Behavioral (ICD-10-PCS; 2024-05-06)
PROC: GZ56ZZZ Individual Psychotherapy, Supportive (ICD-10-PCS; 2024-05-06)
DX: F25.1 Schizoaffective disorder, depressive type (principal); R45.851 Suicidal ideations; J44.9 Chronic obstructive pulmonary disease, unspecified; Z20.822 Contact with and (suspected) exposure to COVID-19; F90.9 Attention-deficit hyperactivity disorder, unspecified type; F41.9 Anxiety disorder, unspecified; F17.210 Nicotine dependence, cigarettes, uncomplicated; F84.0 Autistic disorder; F11.20 Opioid dependence, uncomplicated; F15.20 Other stimulant dependence, uncomplicated; F12.20 Cannabis dependence, uncomplicated; D64.9 Anemia, unspecified; Z88.8 Allergy status to other drugs, medicaments and biological substances; Z65.3 Problems related to other legal circumstances; Z63.9 Problem related to primary support group, unspecified; Z59.9 Problem related to housing and economic circumstances, unspecified; Z79.899 Other long term (current) drug therapy; Z59.00 Homelessness unspecified
CPT/HCPCS: 80048; 80178; 80307; 81003; 85025; 87081; 99285; G0480; Q9967

== ENCOUNTER 2024-05-27 09:17 | Emergency (ER) | payer MEDICAID, OTHER ==
[~2024-05-27] VITALS: Ht 188 cm; Wt 86.0 kg
[~2024-05-27 09:17] MED LIST changes: +ATOM18CA7 PO; -GABA-1181 PO; +GABA-1201 PO; -GUAN1TAB2 PO; +GUAN1TAB20 PO; +MELA3TAB89 PO; -MELA5TAB40 PO
[2024-05-27 11:02] VITALS: BP 127/77; PULSE 76; RESP 16; TEMP 98.3
[2024-05-27] MEDS ORDERED: ATOM40CA9 PO (11:06)
[2024-05-27 11:10] LABS: COVID AG,FIA SOURCE NASAL SWAB
[2024-05-27 11:27] LABS: BASOPHILS % (AUTO) 1.1 % (0.0-2.0); EOSINOPHILS % (AUTO) 6.7 % (1.0-6.0); HEMATOCRIT 42.5 % (41-53); HEMOGLOBIN 14.1 g/dL (13.5-17.5); LYMPHOCYTES # (AUTO) 1.8 K/uL (1.0-4.8); LYMPHOCYTES % (AUTO) 32.2 % (22.0-44.0); MEAN CORPUSCULAR HEMOGLOBIN 28.5 pg (26.0-34.0); MEAN CORPUSCULAR HGB CONC 33.2 G/dL (31.0-37.0); MEAN CORPUSCULAR VOLUME 86 fL (80-100); MONOCYTES # (AUTO) 0.4 K/uL (0.1-1.0); MONOCYTES % (AUTO) 6.8 % (2.0-9.0); NEUTROPHILS % (AUTO) 53.2 % (40.0-70.0); PLATELET COUNT (AUTO) 214 K/uL (150-450); RED BLOOD CELL COUNT(AUTO) 4.95 MIL/uL (4.50-5.90); RED CELL DISTRIBUTION WIDTH 15.5 % (11.5-14.5); WHITE BLOOD COUNT (AUTO) 5.6 K/uL (4.5-11.0)
[2024-05-27 11:32] LABS: SARS-COV2 (COVID) ANTIGEN,FIA Negative (Negative)
[2024-05-27 11:35] LABS: ANION GAP 10 mmol/L (8-16); CALCIUM, TOTAL 8.7 mg/dL (8.8-10.5); CARBON DIOXIDE 26 mmol/L (22-29); CHLORIDE 101 mmol/L (98-107); CREATININE 0.95 mg/dL (0.60-1.30); GLOMERULAR FILTR. RATE CALC > 60 mL/min (>60); GLUCOSE,RANDOM 97 mg/dL (70-110); POTASSIUM 4.1 mmol/L (3.5-5.1); SODIUM SERUM 137 mmol/L (136-145); UREA NITROGEN, BLOOD 10 mg/dL (7-18)
[2024-05-27 11:58] LABS: ALCOHOL, BLOOD (SERUM) < 3 mg/dL (0-10)
[2024-05-27 13:32] LABS: PH,URINE DRUG SCREEN 5.5 (5.0-8.0)
[2024-05-27 13:39] LABS: ALCOHOL, URINE DRUG SCREEN NEGATIVE (NEGATIVE); AMPHET/METH SCREEN,URINE NEGATIVE (NEGATIVE); BARBITURATE SCREEN, URINE NEGATIVE (NEGATIVE); BENZODIAZEPINES SCREEN,URINE NEGATIVE (NEGATIVE); CANNABINOID SCREEN,URINE NEGATIVE (NEGATIVE); COCAINE SCREEN,URINE NEGATIVE (NEGATIVE); METHADONE SCREEN, URINE NEGATIVE (NEGATIVE); OPIATE SCREEN,URINE NEGATIVE (NEGATIVE); PHENCYCLIDINE SCREEN,URINE NEGATIVE (NEGATIVE)
== END 2024-05-27 13:58 | disposition home or self-care (01) ==
LOC: EMS 09:24
DX: R45.1 Restlessness and agitation (principal); F17.210 Nicotine dependence, cigarettes, uncomplicated; F15.10 Other stimulant abuse, uncomplicated; Z88.8 Allergy status to other drugs, medicaments and biological substances; Z79.899 Other long term (current) drug therapy; Z20.822 Contact with and (suspected) exposure to COVID-19
CPT/HCPCS: 99285; 87426; 80048; 85025; 36415; 80307; G0480

== ENCOUNTER 2024-06-01 10:00 | Inpatient (IN) | payer MEDICAID, OTHER ==
[~2024-06-01] VITALS: Ht 188 cm; Wt 85.8 kg
[~2024-06-01 10:00] MED LIST changes: -ATOM18CA7 PO; +ATOM40CA9 PO; -MIRT-89 PO
[2024-06-01] MEDS ORDERED: ZOLPIDEM TARTRATE 10 MG TABLET PO PRN (11:00)
[2024-06-01] MEDS: OLANZapine 5 MG RAPDIS TABLET PO PRN (12:38)
[2024-06-01 15:29] VITALS: BP_SYST 137; BP_SYST 139; BP_DIAS 65; BP_DIAS 67; PULSE 100; RESP 17; TEMP 99.1; O2SAT 97
[2024-06-01] MEDS: LORazepam 2 MG TABLET PO PRN (17:40)
[2024-06-01 20:50] VITALS: BP 132/71; PULSE 97; RESP 18; TEMP 98.9
[2024-06-01 20:59] VITALS: BP 132/77; PULSE 132; RESP 18; TEMP 98.9; O2SAT 97
[2024-06-01] MEDS ORDERED: GABAPENTIN 300 MG CAPSULE PO PRN (22:00)
[2024-06-01] MEDS ORDERED: MAG HYDROX/ALUMINUM HYD/SIMETH ES 30 ML SUSPENSION UDCUP PO PRN ×2 (22:00)
[2024-06-01] MEDS ORDERED: PROMETHAZINE HCL 25 MG TABLET PO PRN (22:00)
[2024-06-01] MEDS ORDERED: MAGNESIUM HYDROXIDE SUSPENSION 30 ML UDCUP PO PRN (22:00)
[2024-06-01] MEDS ORDERED: LOPERAMIDE HCL 2 MG CAPSULE PO PRN ×2 (22:00)
[2024-06-01] MEDS ORDERED: CloNIDine HCL 0.1 MG TABLET PO PRN (22:00)
[2024-06-01] MEDS ORDERED: IBUPROFEN 600 MG TABLET PO PRN (22:00)
[2024-06-01 22:13] VITALS: BP 142/76; PULSE 88; RESP 18; TEMP 98.7; O2SAT 97
[2024-06-01] MEDS: CloNIDine HCL 0.1 MG TABLET PO SCH (22:56)
[2024-06-01] MEDS: CYANOCOBALAMIN 1,000 MCG/ML VIAL IM ONE (22:57)
[2024-06-01] MEDS: RisperiDONE ER SUSPENSION 250 MG/0.7 ML PRE-FILLED SYRINGE SQ ONE (22:57)
[2024-06-02] VITALS (8 sets, daily range): BP systolic 101–139; BP diastolic 55–87; PULSE 76–88; RESP 17–18; TEMP 97.2–97.8; O2SAT 98–99
[2024-06-02 06:32] LABS: COVID AG,FIA SOURCE NASAL SWAB
[2024-06-02 07:46] LABS: SARS-COV2 (COVID) ANTIGEN,FIA Negative (Negative)
[2024-06-02 08:01] LABS: HEMOGLOBIN A1C 5.1 % (3.8-5.6)
[2024-06-02 08:05] LABS: ALANINE AMINOTRANSFERASE 11 U/L (12-78); ALBUMIN 3.1 g/dL (3.4-5.0); ALKALINE PHOSPHATASE 114 U/L (46-116); ANION GAP 9 mmol/L (8-16); ASPARTATE AMINOTRANSFERASE 23 U/L (15-37); BILIRUBIN,TOTAL 0.4 mg/dL (0.1-1.0); CARBON DIOXIDE 27 mmol/L (22-29); CHLORIDE 103 mmol/L (98-107); CHOLESTEROL 75 mg/dL (131-200); CREATININE 0.95 mg/dL (0.60-1.30); GLOMERULAR FILTR. RATE CALC > 60 mL/min (>60); GLUCOSE,RANDOM 75 mg/dL (70-110); HDL CHOLESTEROL 37 mg/dL (40-60); LDL CHOL (CALC.) 27 mg/dL (0-130); POTASSIUM 3.1 mmol/L (3.5-5.1); SODIUM SERUM 139 mmol/L (136-145); TOTAL PROTEIN, SERUM 6.8 g/dL (6.4-8.2); TRIGLYCERIDES 53 mg/dL (15-150); UREA NITROGEN, BLOOD 10 mg/dL (7-18)
[2024-06-02 08:08] LABS: BASOPHILS % (AUTO) 0.5 % (0.0-2.0); EOSINOPHILS % (AUTO) 8.2 % (1.0-6.0); HEMATOCRIT 39.1 % (41-53); HEMOGLOBIN 13.3 g/dL (13.5-17.5); LYMPHOCYTES # (AUTO) 1.3 K/uL (1.0-4.8); LYMPHOCYTES % (AUTO) 20.2 % (22.0-44.0); MEAN CORPUSCULAR VOLUME 85 fL (80-100); MONOCYTES # (AUTO) 0.8 K/uL (0.1-1.0); MONOCYTES % (AUTO) 11.9 % (2.0-9.0); NEUTROPHILS # (AUTO) 3.8 K/uL (1.8-7.7); NEUTROPHILS % (AUTO) 59.2 % (40.0-70.0); PLATELET COUNT (AUTO) 184 K/uL (150-450); RED BLOOD CELL COUNT(AUTO) 4.58 MIL/uL (4.50-5.90); RED CELL DISTRIBUTION WIDTH 14.9 % (11.5-14.5); WHITE BLOOD COUNT (AUTO) 6.4 K/uL (4.5-11.0)
[2024-06-02] MEDS: BuPROPion HCL XL 150 MG ER TABLET PO SCH (10:16)
[2024-06-02] MEDS: FOLIC ACID 1 MG TABLET PO SCH (10:16)
[2024-06-02] MEDS: GABAPENTIN 400 MG CAPSULE PO SCH (10:16)
[2024-06-02] MEDS: THIAMINE 100 MG TABLET PO SCH (10:16)
[2024-06-02] MEDS: MULTIVITAMINS WITH MINERALS, THERAPEUTIC TABLET PO SCH (10:17)
[2024-06-02] MEDS: POTASSIUM CHLORIDE 20 MEQ ER TABLET PO SCH (11:08)
[2024-06-02] MEDS: HydrOXYzine PAMOATE 50 MG CAPSULE PO PRN (12:13)
[2024-06-02] MEDS: ESZOPICLONE 3 MG TABLET PO SCH (21:22)
[2024-06-02] MEDS: MELATONIN 5 MG TABLET PO SCH (21:22)
[2024-06-03 08:18] VITALS: BP 120/75; PULSE 75; RESP 17; TEMP 97.9; O2SAT 96
[2024-06-03] MEDS: ETHYL ALCOHOL 62% ANTISEPTIC NASAL SANITIZER 0.6 ML AMPUL NASAL SCH (09:00)
[2024-06-03 10:11] VITALS: BP 120/75; PULSE 75; RESP 17; TEMP 97.9
[2024-06-03 12:10] VITALS: BP 127/71; PULSE 97; RESP 0
[2024-06-03] MEDS: NICOTINE POLACRILEX 2 MG LOZENGE PO PRN (12:14)
[2024-06-03 17:48] VITALS: BP 134/77; PULSE 97
[2024-06-03 23:42] VITALS: RESP 18
[2024-06-04] VITALS (7 sets, daily range): BP systolic 115–126; BP diastolic 62–75; PULSE 63–93; RESP 17–18; TEMP 97.9–98.2; O2SAT 98
[2024-06-04] MEDS: GuaiFENesin/D-METHORPHAN [SUGAR-FREE] 200-20MG/10 ML SYRUP UDCUP PO PRN (08:06)
[2024-06-04 08:37] LABS: COVID AG,FIA SOURCE NASAL SWAB
[2024-06-04 08:58] LABS: SARS-COV2 (COVID) ANTIGEN,FIA Negative (Negative)
[2024-06-04] MEDS: BENZOCAINE/MENTHOL LOZENGE PO SCH (13:04)
[2024-06-04] MEDS: ACETAMINOPHEN 325 MG TABLET PO PRN (14:23)
[2024-06-04] MEDS: HydrOXYzine PAMOATE 50 MG CAPSULE PO PRN (21:47)
[2024-06-05 08:59] VITALS: BP 110/75; PULSE 70; RESP 18; TEMP 97.9
[2024-06-05 09:33] VITALS: BP 110/78; PULSE 70; RESP 17; TEMP 97.9; O2SAT 96
[2024-06-05] MEDS ORDERED: DiphenhydrAMINE HCL 25 MG CAPSULE PO PRN (18:30)
[2024-06-05 20:16] VITALS: BP 115/76; PULSE 72; RESP 18; TEMP 97.4; O2SAT 97
[2024-06-05 21:50] VITALS: BP 118/70; PULSE 77; RESP 18; O2SAT 98
[2024-06-05 23:00] VITALS: BP 115/76; PULSE 72; RESP 18; TEMP 97.4; O2SAT 97
[2024-06-06 06:20] VITALS: RESP 18
[2024-06-06 09:37] VITALS: BP 123/71; PULSE 90; RESP 18; TEMP 97.8; O2SAT 99
[2024-06-06] MEDS: GuanFACINE HCL 1 MG TABLET PO SCH (12:19)
[2024-06-06 16:10] VITALS: BP 126/74; PULSE 98
[2024-06-06] MEDS: RisperiDONE 1 MG TABLET PO PRN (18:39)
[2024-06-06 20:09] VITALS: BP 123/62; PULSE 78; RESP 16; TEMP 97.6; O2SAT 99
[2024-06-06] MEDS: RisperiDONE 3 MG TABLET PO SCH (21:22)
[2024-06-06 21:55] VITALS: BP 132/64; PULSE 69; RESP 18; O2SAT 97
[2024-06-06 22:40] VITALS: BP 123/62; PULSE 78; RESP 19; TEMP 97.6; O2SAT 99
[2024-06-07 05:51] VITALS: BP 148/75; PULSE 88; RESP 18; O2SAT 98
[2024-06-07] MEDS: BuPROPion HCL XL 150 MG ER TABLET PO SCH (08:04)
[2024-06-07] MEDS: ATOMOXETINE HCL 25 MG CAPSULE PO SCH (08:05)
[2024-06-07 09:08] VITALS: BP 122/66; PULSE 82; RESP 18; O2SAT 100
[2024-06-07] MEDS ORDERED: NALT50TA6 PO (12:27)
[2024-06-07] MEDS ORDERED: RISP3TAB77 PO (12:27)
[2024-06-07] MEDS ORDERED: GUAN1TAB2 PO (12:27)
[2024-06-07] MEDS ORDERED: MELA5TAB40 PO (12:27)
[2024-06-07] MEDS ORDERED: GABA-1181 PO (12:27)
[2024-06-07] MEDS ORDERED: ATOM40CA9 PO (12:27)
[2024-06-07] MEDS: GuanFACINE HCL 1 MG TABLET PO SCH (13:09)
[2024-06-07] MEDS: GABAPENTIN 300 MG CAPSULE PO SCH (13:11)
[2024-06-07 21:00] VITALS: BP 129/76; PULSE 93; RESP 19; TEMP 97.7; O2SAT 98
[2024-06-07] MEDS: RisperiDONE 3 MG TABLET PO SCH (21:20)
[2024-06-07 22:44] VITALS: BP 129/16; PULSE 93; RESP 19; TEMP 97.7; O2SAT 98
[2024-06-08] MEDS: BuPROPion HCL XL 150 MG ER TABLET PO SCH (08:18)
[2024-06-08] MEDS: ATOMOXETINE HCL 40 MG CAPSULE PO SCH (08:18)
[2024-06-08 08:52] VITALS: BP 141/69; PULSE 76; RESP 18; TEMP 97.7; O2SAT 98
[2024-06-08] MEDS ORDERED: BuPROPion HCL XL 150 MG ER TABLET PO SCH (09:00)
[2024-06-08] MEDS ORDERED: CLON0.1T2 PO ×2 (10:16→11:06)
[2024-06-08] MEDS ORDERED: MELA3TAB89 PO (11:06)
[2024-06-08] MEDS ORDERED: GUAN1TAB20 PO (11:06)
[2024-06-08] MEDS ORDERED: NALT50TA33 PO (11:06)
[2024-06-08] MEDS ORDERED: BUPR-514 PO (11:06)
[2024-06-08] MEDS ORDERED: GABA-1201 PO (11:06)
[2024-06-08] MEDS ORDERED: RISP3TAB77 PO (11:06)
[2024-07-31] MEDS ORDERED: RisperiDONE ER SUSPENSION 250 MG/0.7 ML PRE-FILLED SYRINGE SQ SCH (09:00)
== END 2024-06-08 11:43 | disposition home or self-care (01) | DRG 750 ==
LOC: EMS 10:00 → 3EI 14:17
PROVIDERS: ADMIT Psychiatry & Neurology Psychiatry; ATTEND Psychiatry & Neurology Psychiatry
PROC: GZHZZZZ Group Psychotherapy (ICD-10-PCS; principal; 2024-06-02)
PROC: GZ58ZZZ Individual Psychotherapy, Cognitive-Behavioral (ICD-10-PCS; 2024-06-02)
DX: F25.9 Schizoaffective disorder, unspecified (principal); F33.2 Major depressive disorder, recurrent severe without psychotic features; R45.851 Suicidal ideations; Z20.822 Contact with and (suspected) exposure to COVID-19; F41.9 Anxiety disorder, unspecified; F17.200 Nicotine dependence, unspecified, uncomplicated; G47.00 Insomnia, unspecified; F90.9 Attention-deficit hyperactivity disorder, unspecified type; Z88.8 Allergy status to other drugs, medicaments and biological substances; Z91.148 Patient's other noncompliance with medication regimen for other reason; Z59.00 Homelessness unspecified
CPT/HCPCS: 80053; 80061; 83036; 84132; 85025; 86592; 87081; 99285; J3420

== ENCOUNTER 2024-06-29 13:15 | Inpatient (IN) | payer MEDICAID, OTHER ==
[~2024-06-29] VITALS: Ht 188 cm; Wt 80.3 kg
[~2024-06-29 13:15] MED LIST changes: -ATOM40CA9 PO; -BUPR-514 PO; +CLON0.1T2 PO; -GABA-1201 PO; -GUAN1TAB20 PO; -MELA3TAB89 PO; -NALT50TA33 PO; -RISP3TAB77 PO
[2024-06-29] MEDS: HALOPERIDOL 5 MG TABLET PO PRN (14:36)
[2024-06-29] MEDS: LORazepam 2 MG TABLET PO PRN (14:36)
[2024-06-29 15:08] LABS: BASOPHILS % (AUTO) 0.3 % (0.0-2.0); EOSINOPHILS % (AUTO) 2.3 % (1.0-6.0); HEMATOCRIT 37.7 % (41-53); HEMOGLOBIN 12.8 g/dL (13.5-17.5); LYMPHOCYTES # (AUTO) 2.3 K/uL (1.0-4.8); LYMPHOCYTES % (AUTO) 26.4 % (22.0-44.0); MEAN CORPUSCULAR HEMOGLOBIN 28.6 pg (26.0-34.0); MEAN CORPUSCULAR VOLUME 84 fL (80-100); MONOCYTES # (AUTO) 0.8 K/uL (0.1-1.0); MONOCYTES % (AUTO) 8.8 % (2.0-9.0); NEUTROPHILS # (AUTO) 5.4 K/uL (1.8-7.7); NEUTROPHILS % (AUTO) 62.2 % (40.0-70.0); PLATELET COUNT (AUTO) 237 K/uL (150-450); RED BLOOD CELL COUNT(AUTO) 4.48 MIL/uL (4.50-5.90); RED CELL DISTRIBUTION WIDTH 14.1 % (11.5-14.5); WHITE BLOOD COUNT (AUTO) 8.7 K/uL (4.5-11.0)
[2024-06-29] MEDS ORDERED: GuaiFENesin/D-METHORPHAN [SUGAR-FREE] 200-20MG/10 ML SYRUP UDCUP PO PRN (15:15)
[2024-06-29] MEDS ORDERED: ACETAMINOPHEN 325 MG TABLET PO PRN (15:15)
[2024-06-29] MEDS ORDERED: MAGNESIUM HYDROXIDE SUSPENSION 30 ML UDCUP PO PRN (15:15)
[2024-06-29] MEDS ORDERED: MAG HYDROX/ALUMINUM HYD/SIMETH ES 30 ML SUSPENSION UDCUP PO PRN ×2 (15:15)
[2024-06-29] MEDS ORDERED: CloNIDine HCL 0.1 MG TABLET PO PRN (15:15)
[2024-06-29] MEDS ORDERED: LOPERAMIDE HCL 2 MG CAPSULE PO PRN (15:15)
[2024-06-29 15:16] LABS: ANION GAP 6 mmol/L (8-16); CALCIUM, TOTAL 7.9 mg/dL (8.8-10.5); CARBON DIOXIDE 30 mmol/L (22-29); CHLORIDE 97 mmol/L (98-107); CREATININE 0.84 mg/dL (0.60-1.30); GLOMERULAR FILTR. RATE CALC > 60 mL/min (>60); GLUCOSE,RANDOM 114 mg/dL (70-110); SODIUM SERUM 133 mmol/L (136-145); UREA NITROGEN, BLOOD 7 mg/dL (7-18)
[2024-06-29 15:19] LABS: POTASSIUM 2.8 mmol/L (3.5-5.1)
[2024-06-29 15:31] LABS: ALCOHOL, BLOOD (SERUM) < 3 mg/dL (0-10)
[2024-06-29 16:02] LABS: COVID AG,FIA SOURCE NASAL SWAB
[2024-06-29] MEDS: HydrOXYzine HCL 25 MG TABLET PO ONE (16:10)
[2024-06-29] MEDS: GABAPENTIN 300 MG CAPSULE PO SCH (16:10)
[2024-06-29] MEDS: POTASSIUM CHLORIDE 20 MEQ ER TABLET PO ONE (16:10)
[2024-06-29 16:19] LABS: SARS-COV2 (COVID) ANTIGEN,FIA Negative (Negative)
[2024-06-29 16:20] LABS: APPEARANCE,URINE CLEAR (CLEAR); BILIRUBIN,URINE NEGATIVE (NEGATIVE); COLOR,URINE YELLOW (YELLOW); GLUCOSE, URINE (UA) NEGATIVE (NEGATIVE); KETONES,URINE NEGATIVE (NEGATIVE); LEUKOCYTE ESTERASE ,URINE NEGATIVE (NEGATIVE); NITRATE,URINE NEGATIVE (NEGATIVE); OCCULT BLOOD,URINE NEGATIVE (NEGATIVE); PROTEIN,URINE TRACE mg/dL (NEGATIVE); SPECIFIC GRAVITIY, URINE 1.017 (1.003-1.030); UROBILINOGEN,URINE <=1.0 mg/dL (<=1.0)
[2024-06-29 16:28] LABS: ALCOHOL, URINE DRUG SCREEN NEGATIVE (NEGATIVE); AMPHET/METH SCREEN,URINE POSITIVE (NEGATIVE); BARBITURATE SCREEN, URINE NEGATIVE (NEGATIVE); BENZODIAZEPINES SCREEN,URINE NEGATIVE (NEGATIVE); CANNABINOID SCREEN,URINE POSITIVE (NEGATIVE); COCAINE SCREEN,URINE NEGATIVE (NEGATIVE); METHADONE SCREEN, URINE NEGATIVE (NEGATIVE); OPIATE SCREEN,URINE NEGATIVE (NEGATIVE); PHENCYCLIDINE SCREEN,URINE POSITIVE (NEGATIVE)
[2024-06-29] MEDS: CloNIDine HCL 0.1 MG TABLET PO SCH (17:00)
[2024-06-29 17:44] VITALS: O2SAT 96
[2024-06-29 19:57] VITALS: BP 115/74; PULSE 67; RESP 18; TEMP 97.7; O2SAT 100
[2024-06-29 19:59] VITALS: BP 115/74; PULSE 67; RESP 18; TEMP 97.7; O2SAT 100
[2024-06-29] MEDS: RisperiDONE 1 MG TABLET PO SCH (20:06)
[2024-06-29] MEDS: MELATONIN 5 MG TABLET PO SCH (20:06)
[2024-06-29] MEDS: THIAMINE 100 MG TABLET PO SCH (20:06)
[2024-06-30 06:25] VITALS: BP 121/77; PULSE 73; RESP 18; TEMP 97.6
[2024-06-30] MEDS: PALIPERIDONE PALMITATE 234 MG/1.5 ML SYRINGE IM ONE (07:07)
[2024-06-30] MEDS: ATOMOXETINE HCL 10 MG CAPSULE PO SCH (08:34)
[2024-06-30] MEDS: FOLIC ACID 1 MG TABLET PO SCH (08:34)
[2024-06-30] MEDS: MULTIVITAMINS WITH MINERALS, THERAPEUTIC TABLET PO SCH (08:34)
[2024-06-30 09:01] VITALS: BP 125/88; PULSE 77; RESP 20; TEMP 98.2
[2024-06-30] MEDS: POTASSIUM CHLORIDE 20 MEQ ER TABLET PO ONE (13:48)
[2024-06-30 17:57] VITALS: BP 125/88; PULSE 77; RESP 20; TEMP 98.2; O2SAT 98
[2024-06-30 20:30] VITALS: BP 105/55; PULSE 67; RESP 18; TEMP 97.2; O2SAT 100
[2024-07-01 06:07] VITALS: BP 97/57; PULSE 62; RESP 18; TEMP 98.7; O2SAT 98
[2024-07-01 06:09] VITALS: BP 98/59; PULSE 68; RESP 18
[2024-07-01] MEDS: RisperiDONE 2 MG TABLET PO SCH (08:26)
[2024-07-01 08:27] LABS: ANION GAP 9 mmol/L (8-16); CALCIUM, TOTAL 8.3 mg/dL (8.8-10.5); CARBON DIOXIDE 27 mmol/L (22-29); CHLORIDE 105 mmol/L (98-107); CREATININE 0.77 mg/dL (0.60-1.30); GLOMERULAR FILTR. RATE CALC > 60 mL/min (>60); GLUCOSE,RANDOM 82 mg/dL (70-110); POTASSIUM 3.6 mmol/L (3.5-5.1); SODIUM SERUM 141 mmol/L (136-145); UREA NITROGEN, BLOOD 10 mg/dL (7-18)
[2024-07-01 08:57] VITALS: BP 109/61; PULSE 71; RESP 17; TEMP 97.3; O2SAT 99
[2024-07-01 12:46] VITALS: BP 119/69; PULSE 88; RESP 18; TEMP 98.2; O2SAT 99
[2024-07-01 15:36] VITALS: BP 133/71; PULSE 89; RESP 18; TEMP 98.2; O2SAT 99
[2024-07-01] MEDS: GABAPENTIN 400 MG CAPSULE PO SCH (16:18)
[2024-07-01] MEDS: ETHYL ALCOHOL 62% ANTISEPTIC NASAL SANITIZER 0.6 ML AMPUL NASAL SCH (21:24)
[2024-07-01] MEDS: CHLORHEXIDINE GLUCONATE 2% TOWELETTE [2'S/6'S] TP SCH (21:25)
[2024-07-01] MEDS: ZOLPIDEM TARTRATE 10 MG TABLET PO PRN (21:36)
[2024-07-01 22:10] VITALS: RESP 18
[2024-07-02 05:55] VITALS: BP 117/73; PULSE 88; RESP 18; TEMP 97.7; O2SAT 98
[2024-07-02] MEDS: RisperiDONE 1 MG TABLET PO PRN (05:57)
[2024-07-02] MEDS: HydrOXYzine PAMOATE 50 MG CAPSULE PO PRN (08:11)
[2024-07-02] MEDS: ATOMOXETINE HCL 18 MG CAPSULE PO SCH (08:12)
[2024-07-02 08:29] VITALS: BP 114/61; PULSE 72; RESP 17; TEMP 97.5; O2SAT 99
[2024-07-02] MEDS: TEMAZEPAM 15 MG CAPSULE PO PRN (20:10)
[2024-07-02 20:15] VITALS: BP 118/89; PULSE 88; RESP 20; TEMP 97.1; O2SAT 99
[2024-07-02 20:21] VITALS: BP 126/69; PULSE 88; RESP 18; TEMP 97.2; O2SAT 100
[2024-07-03 06:16] VITALS: BP 124/75; PULSE 65; RESP 18; TEMP 98.4; O2SAT 99
[2024-07-03] MEDS: GABAPENTIN 300 MG CAPSULE PO PRN (06:18)
[2024-07-03 08:25] VITALS: RESP 17
[2024-07-03] MEDS: PALIPERIDONE PALMITATE 156 MG/ML SYRINGE IM ONE (09:41)
[2024-07-03 10:52] VITALS: BP 110/59; PULSE 65; RESP 17; TEMP 97.7; O2SAT 100
[2024-07-03] MEDS: NICOTINE POLACRILEX 2 MG LOZENGE PO PRN (12:29)
[2024-07-03] MEDS: HALOPERIDOL LACTATE 5 MG/ML VIAL IM ONE (15:13)
[2024-07-03] MEDS: DiphenhydrAMINE HCL 50 MG/ML VIAL IM ONE (15:13)
[2024-07-03] MEDS: LORazepam 2 MG/ML VIAL IM ONE (15:14)
[2024-07-03 20:26] VITALS: BP 105/65; PULSE 65; RESP 18; TEMP 97.5; O2SAT 99
[2024-07-04 00:46] VITALS: BP 104/52; PULSE 64; RESP 16; TEMP 96.9; O2SAT 100
[2024-07-04 06:04] VITALS: BP 157/69; PULSE 69; RESP 18; TEMP 98.7; O2SAT 97
[2024-07-04] MEDS ORDERED: OLANZapine 5 MG RAPDIS TABLET PO PRN (16:30)
[2024-07-04] MEDS: GABAPENTIN 300 MG CAPSULE PO SCH (17:04)
[2024-07-04] MEDS: BENZTROPINE MESYLATE 2 MG TABLET PO ONE (17:22)
[2024-07-04] MEDS: GuanFACINE HCL 1 MG TABLET PO SCH (17:22)
[2024-07-04] MEDS: IBUPROFEN 600 MG TABLET PO PRN (18:22)
[2024-07-04 18:23] VITALS: RESP 18
[2024-07-04] MEDS: HydrOXYzine PAMOATE 50 MG CAPSULE PO PRN (18:25)
[2024-07-04 19:23] VITALS: RESP 18
[2024-07-04] MEDS: OLANZapine 5 MG RAPDIS TABLET PO SCH (20:15)
[2024-07-04 20:19] VITALS: BP 130/68; PULSE 86; RESP 19; TEMP 97.3; O2SAT 100
[2024-07-04 22:45] VITALS: BP 101/68; PULSE 91; RESP 17; TEMP 97.8; O2SAT 96
[2024-07-05 05:46] VITALS: BP 98/58; PULSE 59; RESP 18; TEMP 97.9; O2SAT 98
[2024-07-05 05:48] VITALS: BP 98/58; PULSE 59; RESP 18; TEMP 97.9; O2SAT 97
[2024-07-05 05:49] VITALS: BP 100/59; PULSE 60; RESP 18
[2024-07-05] MEDS: BENZTROPINE MESYLATE 2 MG TABLET PO SCH (08:16)
[2024-07-05] MEDS: ATOMOXETINE HCL 25 MG CAPSULE PO SCH (08:17)
[2024-07-05 08:34] VITALS: BP 111/60; PULSE 66; RESP 16; TEMP 98.1; O2SAT 100
[2024-07-05] MEDS: PROMETHAZINE HCL 25 MG TABLET PO PRN (13:22)
[2024-07-05] MEDS ORDERED: DiphenhydrAMINE HCL 50 MG/ML VIAL IM ONE (15:30)
[2024-07-05] MEDS ORDERED: HALOPERIDOL LACTATE 5 MG/ML VIAL IM ONE (15:30)
[2024-07-05] MEDS ORDERED: LORazepam 2 MG/ML VIAL IM ONE (15:30)
[2024-07-05] MEDS: ChlorproMAZINE HCL 100 MG TABLET PO PRN (16:34)
[2024-07-05 18:03] VITALS: BP 114/67; PULSE 83; RESP 18; TEMP 97.5; O2SAT 100
[2024-07-05] MEDS: OLANZapine 10 MG RAPDIS TABLET PO SCH (20:06)
[2024-07-05 20:45] VITALS: BP 114/67; PULSE 83; RESP 18; TEMP 97.5; O2SAT 100
[2024-07-06 08:26] VITALS: BP 129/61; PULSE 61; RESP 17; TEMP 97.3; O2SAT 100
[2024-07-06] MEDS ORDERED: LORazepam 2 MG/ML VIAL ONE (15:44)
[2024-07-06] MEDS ORDERED: HALOPERIDOL LACTATE 5 MG/ML VIAL ONE (15:44)
[2024-07-06] MEDS ORDERED: DiphenhydrAMINE HCL 50 MG/ML VIAL ONE (15:44)
[2024-07-06] MEDS: HALOPERIDOL LACTATE 5 MG/ML VIAL IM ONE (16:00)
[2024-07-06] MEDS: LORazepam 2 MG/ML VIAL IM ONE (16:00)
[2024-07-06] MEDS: DiphenhydrAMINE HCL 50 MG/ML VIAL IM ONE (16:00)
[2024-07-06 20:29] VITALS: BP 139/77; PULSE 87; RESP 18; TEMP 97.7; O2SAT 100
[2024-07-07] MEDS: ATOMOXETINE HCL 40 MG CAPSULE PO SCH (09:19)
[2024-07-07] MEDS: GuanFACINE HCL 1 MG TABLET PO SCH (09:19)
[2024-07-07] MEDS ORDERED: LORazepam 2 MG/ML VIAL ONE (12:14)
[2024-07-07] MEDS ORDERED: HALOPERIDOL LACTATE 5 MG/ML VIAL ONE (12:14)
[2024-07-07] MEDS ORDERED: DiphenhydrAMINE HCL 50 MG/ML VIAL ONE (12:14)
[2024-07-07] MEDS: LORazepam 2 MG/ML VIAL IM ONE (12:26)
[2024-07-07] MEDS: HALOPERIDOL LACTATE 5 MG/ML VIAL IM ONE (12:26)
[2024-07-07] MEDS: DiphenhydrAMINE HCL 50 MG/ML VIAL IM ONE (12:26)
[2024-07-07 20:17] VITALS: BP 115/64; PULSE 74; RESP 19; TEMP 97.7; O2SAT 100
[2024-07-08 08:13] VITALS: BP 106/65; PULSE 66; RESP 17; TEMP 97.5; O2SAT 100
[2024-07-08] MEDS ORDERED: OLAN10TA74 PO (14:03)
== END 2024-07-08 14:45 | disposition home or self-care (01) | DRG 750 ==
LOC: EMS 13:26 → B3A 18:04
PROVIDERS: ADMIT Psychiatry & Neurology Psychiatry; ATTEND Psychiatry & Neurology Psychiatry
PROC: GZHZZZZ Group Psychotherapy (ICD-10-PCS; principal; 2024-06-30)
PROC: GZ58ZZZ Individual Psychotherapy, Cognitive-Behavioral (ICD-10-PCS; 2024-06-30)
DX: F25.0 Schizoaffective disorder, bipolar type (principal); R45.851 Suicidal ideations; F41.9 Anxiety disorder, unspecified; G47.00 Insomnia, unspecified; Z20.822 Contact with and (suspected) exposure to COVID-19; F17.200 Nicotine dependence, unspecified, uncomplicated; Z91.199 Patient's noncompliance with other medical treatment and regimen due to unspecified reason; Z88.8 Allergy status to other drugs, medicaments and biological substances
CPT/HCPCS: 80048; 80307; 81003; 85025; 86592; 87081; G0480; J1200; J1630; J2060

== ENCOUNTER 2024-07-03 18:24 | Emergency (ER) | payer MEDICAID, OTHER ==
[~2024-07-03] VITALS: Ht 188 cm; Wt 79.0 kg
[2024-07-03 20:42] LABS: BASOPHILS % (AUTO) 0.8 % (0.0-2.0); HEMATOCRIT 39.3 % (41-53); HEMOGLOBIN 13.2 g/dL (13.5-17.5); LYMPHOCYTES % (AUTO) 24.9 % (22.0-44.0); MEAN CORPUSCULAR HEMOGLOBIN 28.9 pg (26.0-34.0); MEAN CORPUSCULAR HGB CONC 33.6 G/dL (31.0-37.0); MEAN CORPUSCULAR VOLUME 86 fL (80-100); MONOCYTES # (AUTO) 0.6 K/uL (0.1-1.0); MONOCYTES % (AUTO) 7.9 % (2.0-9.0); NEUTROPHILS # (AUTO) 4.9 K/uL (1.8-7.7); NEUTROPHILS % (AUTO) 61.4 % (40.0-70.0); PLATELET COUNT (AUTO) 224 K/uL (150-450); RED BLOOD CELL COUNT(AUTO) 4.57 MIL/uL (4.50-5.90); RED CELL DISTRIBUTION WIDTH 14.6 % (11.5-14.5); WHITE BLOOD COUNT (AUTO) 8.1 K/uL (4.5-11.0)
[2024-07-03 20:49] LABS: ANION GAP 8 mmol/L (8-16); CALCIUM, TOTAL 8.5 mg/dL (8.8-10.5); CARBON DIOXIDE 27 mmol/L (22-29); CHLORIDE 104 mmol/L (98-107); GLOMERULAR FILTR. RATE CALC > 60 mL/min (>60); GLUCOSE,RANDOM 98 mg/dL (70-110); POTASSIUM 3.9 mmol/L (3.5-5.1); SODIUM SERUM 139 mmol/L (136-145); UREA NITROGEN, BLOOD 9 mg/dL (7-18)
[2024-07-03 20:54] LABS: ALCOHOL, BLOOD (SERUM) < 3 mg/dL (0-10)
[2024-07-03 23:20] VITALS: BP 121/77; PULSE 76; RESP 18; TEMP 97.9; O2SAT 98
== END 2024-07-04 00:41 ==
LOC: EMS 18:26
DX: S09.90XA Unspecified injury of head, initial encounter (principal); F17.210 Nicotine dependence, cigarettes, uncomplicated; F15.10 Other stimulant abuse, uncomplicated; Z88.1 Allergy status to other antibiotic agents; Z88.8 Allergy status to other drugs, medicaments and biological substances; W22.8XXA Striking against or struck by other objects, initial encounter; Y93.89 Activity, other specified; Y92.89 Other specified places as the place of occurrence of the external cause; Y99.8 Other external cause status
CPT/HCPCS: 99285; 70450; 80048; 85025; 36415; G0480